=== PATIENT | male | born 1955 | race Hispanic/Latino ===

== ENCOUNTER 2020-04-03 07:31 | Day surgery (SDC) | payer OTHER ==
--- NOTE | 2020-03-31 14:10 | RAD REPORT ---
EXAM DESCRIPTION: Vicente Single View03/31/2020 2:00 pm CLINICAL HISTORY: Preop for surgery COMPARISON: none FINDINGS: The lungs appear clear of acute infiltrate. The heart is normal size IMPRESSION: No acute abnormalities displayed
[2020-03-31 14:11] LABS: Absolute Lymphocytes (CBC) 1.8 K/uL (0.7-4.9); Basophils % 0.8 % (0-1.3); Hematocrit 42.1 % (39.6-49.0); Lymphocytes % 25.5 % (15.3-44.8); MPV 10.7 fL (7.6-11.3)
[2020-03-31 14:32] LABS: Potassium 4.1 mmol/L (3.5-5.1)
[2020-04-03] MEDS ORDERED: Ringers Lactate 1,000 ML IV ONE (07:51)
[2020-04-03] MEDS ORDERED: CEFAZOLIN/SWI 1gm 1 GM/10 ML SYR ONE (07:51)
[2020-04-03] MEDS ORDERED: LIDOCAINE 2% MPF 5 ML VIAL ONE (08:05)
[2020-04-03] MEDS ORDERED: dexAMETHasone 10 MG/ML VIAL ONE (08:05)
[2020-04-03] MEDS ORDERED: MIDAZOLAM HCL 2 MG/2 ML INJ ONE (08:05)
[2020-04-03] MEDS ORDERED: propofoL 200 MG/20 ML VIAL IV ONE (08:05)
[2020-04-03] MEDS ORDERED: FENTANYL CITR 250 MCG/5 ML ONE (08:05)
[2020-04-03] MEDS ORDERED: KETOROLAC 30 MG/ML INJ ONE (09:04)
--- NOTE | 2020-04-03 09:09 | P.BOP ---
Preoperative diagnosis: perianal abscess, perianal fistula Postoperative diagnosis: same Primary procedure: EUA, Anoscopy, Rigid proctoscopy, Fistulectomy Secondary procedure: Incision and drainage of perianal abscess Estimated blood loss: <10cc Specimen: fistula tract bx, culture Findings: Right anterolateral fistula, abscess Anesthesia: General Complications: None Drain(s): Other (surgicell) Transferred to: Recovery Room Condition: Good
[2020-04-03] MEDS: MORPHINE 4 MG/ML SYR ONE ×2 (09:29→09:34)
[2020-04-03] MEDS ORDERED: ONDANSETRON 4 MG/2 ML VIAL ONE (09:35)
[2020-04-03] MEDS ORDERED: MEPERIDINE HCL 25 MG/0.5 ML ONE (09:46)
[2020-04-03] MEDS ORDERED: CODEINE 30MG/APAP 300MG TAB ONE (10:21)
[2020-04-03 12:18] VITALS: BP 123/67; TEMP 97.5; O2SAT 96
--- NOTE | 2020-04-05 07:26 | EKG ---
Test Date: 2020-03-31 Test Time: 13:46:04 [employer]: MEG MEASUREMENT RESULTS: Intervals: Rate: 75 IN: 162 QRSD: 146 QT: 438 QTc: 489 [place]: P: 46 IN: 162 QRS: -27 T: 37 INTERPRETIVE STATEMENTS: Normal sinus rhythm Right bundle branch block Abnormal ECG No previous ECG available for comparison Electronically Signed On 04-05-20 07:23:19 CDT by Pablo Gomez
--- NOTE | 2020-04-06 10:09 | OP ---
Date of Procedure: 04/03/2020 Surgeon: Sancho Villasenor MD Diagnoses: Perianal abscess, perianal fistula, perianal pain. Postoperative Diagnoses: Perianal abscess, perianal fistula, perianal pain. Procedure: Examination under anesthesia, anoscopy, rigid proctoscopy, fistulectomy, incision and yeni inage of perianal abscess. Estimated Blood Loss: Less than 10 cc. Anesthesia: General plus local. Findings: Right anterolateral fistula with an abscess. Specimen: Fistula tract biopsy and culture. Indications: This is a case of a male who comes to us with perianal pain, a lump, tenderness, draina ge, diagnosed with perianal abscess, but apparently may have a fistula too. The benefits, alternativ es, and risks of EUA, anoscopy, proctoscopy, possible fistulectomy, and I and D of perianal abscess f ully explained which included but not limited to infection, bleeding, damage to adjacent structures, anesthesia complication, bowel perforation, recurrence, HI, even . He also understands this may not relieve symptoms. He might need more than one surgical intervention. He understands also he ma y require wound care. Description Of Procedure: Patient was brought to the operating room, placed in supine position. Ane sthesia was done without complication. Time-out was called. Patient was placed in lithotomy positio n with proper protection after anesthesia was induced. Rectal examination was done followed by a rig id proctoscopy. During rigid proctoscopy, we noted the patient to have the appearance of an anterola teral fistula on the right side, superficially connecting to the area near the anoderm. This led int o an abscess deeper. Anoscope was placed over the area with a window on the side. Once again, it wa s visualized. At that moment, we put a probe to the fistula. Then, that led us into an abscess. We cultured the pus. The fistula tract was cleaned and biopsied. It was superficial, did not involve the sphincter. Once we , we also had access to the perianal abscess and we did incision an d drainage, removed the purulent discharge, irrigated the area, and packed the area. Patient tolerat ed procedure well. Sponge count and instrument count were correct. Patient was sent to Recovery in stable condition. HM/MODL Voice ID: [id number] Report ID: [id number]
--- NOTE | 2020-04-06 10:09 | DS ---
Date of Discharge: 04/03/2020 Diagnoses: Perianal abscess, perianal fistula. Procedure: Examination under anesthesia, anoscopy, rigid proctoscopy, fistulectomy, and incision and drainage of perianal abscess. Disposition: Home. Activity: As tolerated. No heavy lifting. Discharge Instructions: Followup in my office in 1 week. Call for appointment at [phone]. [facility] 4 times a day and after every bowel movement. Medications: See orders. MARIBEL/ANGEL Voice ID: [id number] Report ID: [id number]
== END 2020-04-03 10:45 | disposition home or self-care (01) ==
LOC: OR 07:31
PROVIDERS: ATTEND Surgery
PROC: 0DJD8ZZ Inspection of Lower Intestinal Tract, Via Natural or Artificial Opening Endoscopic (ICD-10-PCS; 2020-04-03)
PROC: 0DBQ0ZZ Excision of Anus, Open Approach (ICD-10-PCS; principal; 2020-04-03 08:30)
DX: K61.0 Anal abscess (principal); I10 Essential (primary) hypertension; K21.9 Gastro-esophageal reflux disease without esophagitis; Z01.812 Encounter for preprocedural laboratory examination; Z80.8 Family history of malignant neoplasm of other organs or systems
CPT/HCPCS: 46270; 45300; 93005 ×2; 87070; 85025; 80048; 36415; 87205; 88304; 87075; 71045; J2704; J2250; J3010; J1100; J2175; J0690; J7120; J2405; 88305